=== PATIENT | male | born 1960 | race Caucasian/White ===

== ENCOUNTER → 2023-01-22 10:24 | Outpatient (CLI) | payer BC, SELFPAY ==
--- NOTE | ~2023-01-22 | MR_ITS ---
MRI of the lumbar spine Clinical History: Radiculopathy Technique: Axial T2-weighted images, and sagittal T1-weighted, T2-weighted, and T2 fat-sat images wer e acquired. Findings: No fracture identified. There is minimal grade 1 retrolisthesis of L1 over L2. No suspiciou s bone marrow signal abnormality seen. At L1-L2, there is minimal disc bulge and minimal facet joint hypertrophy. No spinal canal stenosis o r neural foraminal narrowing. At L2-L3, there is minimal disc bulge and mild facet hypertrophy. No central canal stenosis or defini te neural foraminal narrowing. At L3-L4, there is minimal disc bulge and minimal facet hypertrophy. No central canal stenosis. There is moderate left neural foraminal narrowing. Right neural foramen preserved. At L4-L5, there is disc bulge and advanced facet arthropathy. There is minimal central canal stenosis . There is mild to moderate bilateral neural foraminal narrowing. At L5-S1, there is minimal disc bulge with advanced facet arthropathy. No central canal stenosis or n eural foraminal narrowing. Paravertebral soft tissues are unremarkable. Impression: Minimal grade 1 retrolisthesis of L1 over L2. Mild degenerative spondylosis, as above. Reviewed, dictated and finalized at location . CARDER Impression: Minimal grade 1 retrolisthesis of L1 over L2. Mild degenerative spondylosis, as above.
== END ==
PROVIDERS: PCP Family Medicine
DX: M48.062 Spinal stenosis, lumbar region with neurogenic claudication (principal); M51.26 Other intervertebral disc displacement, lumbar region; M51.36 Other intervertebral disc degeneration, lumbar region; M51.37 Other intervertebral disc degeneration, lumbosacral region; M43.16 Spondylolisthesis, lumbar region
CPT/HCPCS: 72148